=== PATIENT | male | born 1950 | race Caucasian/White ===

== ENCOUNTER 2018-03-01 10:17 | Inpatient (IN) | payer OTHER ==
[~2018-03-01] VITALS: Ht 167.6 cm; Wt 84.4 kg
--- NOTE | 2018-03-01 10:17 | NUR ---
PT BIBA BLS TO ER BED 04
[2018-03-01 10:23] VITALS: BP 105/72
[2018-03-01] MEDS ORDERED: NACL 0.9% 1,000 ML IV ONE (10:30)
--- NOTE | 2018-03-01 10:30 | NUR ---
PATIENT PRESENTS TO ED WITH 63 YO MALE BIB EMS FROM FIELD FOR LEFT ARM PAIN HAS LARGE ABSCESS ON LEFT ARM; DENIES N/V/D; SKIN IS PINK/WARM/DRY; PT RESPOND TO SOME QUESTIONS APPROPRIATELY; LUNGS CLEAR BL; HR EVEN AND REGULAR; PT DENIES ANY FEVER, CP, SOB, OR COUGH AT THIS TIME; PATIENT STATES PAIN OF 5/10 AT THIS TIME; VSS; PATIENT POSITIONED FOR COMFORT; HOB ELEVATED; BEDRAILS UP X2; BED DOWN. ER MD MADE AWARE OF PT STATUS.
[2018-03-01] MEDS ORDERED: LORazepam 2 MG/ML VIAL IVP ONE (10:35)
[2018-03-01] MEDS ORDERED: CLINDAMYCIN 900 MG in DEXTROSE 5% 100 ML IV ONE (10:35)
[2018-03-01] MEDS ORDERED: LORazepam 2 MG/ML VIAL ONE (10:39)
[2018-03-01 10:43] LABS: BASOPHILS # (AUTO) 0.1 K/uL (0.00-0.22); BASOPHILS % (AUTO) 0.5 % (0.0-2.0); EOSINOPHILS # (AUTO) 0.5 K/uL (0-0.4); EOSINOPHILS % (AUTO) 4.1 % (0.0-4.0); HEMATOCRIT 36.3 % (36-52); HEMOGLOBIN 12.2 g/dL (12.0-18.0); LYMPHOCYTES # (AUTO) 1.2 K/uL (2.0-11.5); LYMPHOCYTES % (AUTO) 10.1 % (20.5-51.1); MEAN CORPUSCULAR HEMOGLOBIN 30 pg (27-31); MEAN CORPUSCULAR HGB CONC 34 g/dL (33-37); MEAN CORPUSCULAR VOLUME 89.5 fL (80-94); MONOCYTES # (AUTO) 1.4 K/uL (0.8-1.0); MONOCYTES % (AUTO) 11.9 % (1.7-9.3); NEUTROPHILS # (AUTO) 8.5 K/uL (1.8-7.7); NEUTROPHILS % (AUTO) 73.4 % (42.2-75.2); PLATELET COUNT (AUTO) 272 K/uL (140-450); RED BLOOD CELL COUNT(AUTO) 4.06 MIL/uL (4.20-6.10); WHITE BLOOD COUNT (AUTO) 11.5 K/uL (4.8-10.8)
--- NOTE | 2018-03-01 10:44 | NUR ---
PT TAKEN OFF THE UNIT VIA GURNEY BY SELF PROPELLED DREDGE OPERATORSCOTTY TOVAR
--- NOTE | 2018-03-01 10:44 | NUR ---
PT TAKEN TO CT
[2018-03-01] MEDS ORDERED: diphenhydrAMINE 50 MG/ML VIAL IVP ONE (10:50)
[2018-03-01] MEDS ORDERED: HALOPERIDOL IM 5 MG/ML VIAL IM ONE (10:50)
--- NOTE | 2018-03-01 10:50 | NUR ---
PT BROUGHT BACK FROM CT, DR ARORA NOTIFIED BY SALES MARKETING DIRECTOR WHITNEY UNABLE TO DO CT SCAN D/T PT MOVING
[2018-03-01] MEDS ORDERED: HALOPERIDOL IM 5 MG/ML VIAL ONE (10:55)
[2018-03-01] MEDS ORDERED: diphenhydrAMINE 50 MG/ML VIAL ONE (10:55)
[2018-03-01 10:56] LABS: ANION GAP 13.1 (8-16); CARBON DIOXIDE 24.8 mmol/L (21-32); CREATININE 0.8 mg/dL (0.7-1.3); POTASSIUM 3.9 mmol/L (3.5-5.1)
[2018-03-01 11:02] LABS: ALBUMIN 3.6 g/dL (3.4-5.0); TOTAL BILIRUBIN 0.9 mg/dL (0.0-1.0)
--- NOTE | 2018-03-01 11:03 | NUR ---
PT TAKEN BACK TO CT BY ACUTE CARE ASSISTANTSCOTTY OLSON
[2018-03-01] MEDS ORDERED: CLINDAMYCIN 900 MG/6 ML VIAL IV ONE (11:10)
[2018-03-01 11:12] LABS: PROTHROMBIN TIME 11.2 secs (10.8-13.4)
[2018-03-01 11:14] LABS: SALICYLATE < 2.8 mg/dL (2.8-20.0)
[2018-03-01 11:15] LABS: ACETAMINOPHEN < 0.5 ug/ml (10-30)
[2018-03-01] MEDS ORDERED: MORPHINE SULFATE 2 MG/ML SYR IVP PRN (12:00)
[2018-03-01] MEDS ORDERED: HYDROcodone/APAP 5/325 MG 1 TAB TAB PO PRN (12:00)
[2018-03-01] MEDS ORDERED: ACETAMINOPHEN 325 MG TAB PO PRN (12:00)
[2018-03-01] MEDS ORDERED: ONDANSETRON 4 MG/2 ML VIAL IM/IVP PRN (12:00)
[2018-03-01] MEDS ORDERED: DOCUSATE SODIUM 100 MG GELCAP PO PRN (12:00)
[2018-03-01] MEDS ORDERED: ZOLPIDEM 5 MG TAB PO PRN (12:00)
[2018-03-01 12:04] LABS: APPEARANCE,URINE CLEAR (CLEAR); BILIRUBIN,URINE NEGATIVE (NEGATIVE); BLOOD, URINE NEGATIVE (NEGATIVE); COLOR,URINE YELLOW (YELLOW); LEUKOCYTE ESTERASE ,URINE NEGATIVE (NEGATIVE); NITRITE, URINE NEGATIVE (NEGATIVE); UGLUCOSE NEGATIVE (NEGATIVE)
[2018-03-01 12:16] LABS: BARBITURATE, URINE NEG. ng/ml (NEG <=200); BENZODIAZEPINE, URINE NEG. ng/mL (NEG <=200); CANNABINOID, URINE POS. ng/mL (NEG <=50); COCAINE, URINE NEG. ng/mL (NEG <=300); OPIATE, URINE POS. ng/mL (NEG <=2000); PHENCYCLIDINE SCREEN,URINE NEG. ng/mL (NEG <=25)
--- NOTE | 2018-03-01 12:25 | NUR ---
PT ARRIVED ON THE UNIT WITH 2 ER NURSES ON [facility]. PT IS SLEEPING. PER E/R NURSE, PT HAS BEEN GIVEN A LOT OF MEDS. NOTED PT IN JEANS AND SOCKS WITH HOSPITAL GOWN ON TOP. R FA 20G IV NS BOLUS, JUST FINISHED. PT HAS A LARGE ABCESS ON L UA. PT HAS MISSING TEETH. SKIN IS INTACT. PERSONAL BELONGINGS NEXT TO BED. V/S WITHIN NORMAL RANGE. NO SIGNS OF DISTRESS. WILL START ADMISSION PROCESS.
--- NOTE | 2018-03-01 12:38 | NUR ---
Patient will be admitted to care of DR DAS. Admited to MS. ROOM 105B. Belongings list completed. Report to TAYLOR CELIS
[2018-03-01 13:00] VITALS: BP 82/53
[2018-03-01] MEDS: NACL 0.9% 1,000 ML IV SCH ×3 (13:30→23:28)
--- NOTE | 2018-03-01 13:33 | NUR ---
PT STILL SLEEPING SOUNDLY. NO SIGNS OF DISTRESS. MRSA SCREENING DONE. ADMINISTERED FLUIDS. WILL CONTINUE TO MONITOR PT.
[2018-03-01 13:51] LABS: MAGNESIUM 1.8 mg/dL (1.8-2.4); PHOSPHORUS 3.4 mg/dL (2.5-4.9); THYROID STIMULATING HORMONE 1.51 uIU/mL (0.34-3.74)
[2018-03-01 16:37] VITALS: BP 104/64
[2018-03-01] MEDS: LACTOBACILLUS RHAMNOSUS GG 1 EACH CAP PO SCH (17:00)
--- NOTE | 2018-03-01 17:46 | NUR ---
PT SLEEPING. UNABLE TO AROUSE PT TO WAKE UP. WILL HOLD PROBIOTIC FOR ASP PRECAUTION.
--- NOTE | 2018-03-01 19:10 | NUR ---
ENDORSED PT TO THE HEATING ELEMENT BUILDER NURSE AT BEDSIDE FOR CONTINUITY OF CARE. PT IN STABLE CONDITION. SLEEPING.
--- NOTE | 2018-03-01 19:15 | NUR ---
RECEIVED REPORT FROM [facility] NURSE PEDRAZA AT BEDSIDE FOR CONTINUITY OF CARE. PT SLEEPING. IV NOTED RFA 20G NS 100ML/HR. PT HAS NO SOB NO S/S OF DISTRESS ON RA. PT HAS BEEN SLEEPING THE WHOLE DAY. WILL CONTINUE TO MONITOR.
[2018-03-01 20:00] VITALS: BP 104/63
[2018-03-01] MEDS: CLINDAMYCIN 600 MG in DEXTROSE 5% 50 ML IV SCH (20:06)
--- NOTE | 2018-03-01 22:39 | NUR ---
PT SLEEPING. NO SOB. NO S/S OF DISTRESS WILL CONTINUE TO MONITOR.
--- NOTE | 2018-03-02 00:53 | NUR ---
PT HAS BEEN IN RESTROOM FOR 20MIN IN THE TOILET. PT FALLING ASLEEP IN TOILET AND REFUSING TO GET UP. TRIED TO GET HIM OFF TOILET 4X. LET HIM KNOW SECURITY IS COMING. PT IS STILL ASLEEP IN TOILET. WILL CONTINUE TO MONITOR.
--- NOTE | 2018-03-02 02:00 | NUR ---
PT REQUESTED FOR RESTROOM. PT STAY IN BATHROOM OVER 20 MIN. THEN WAS ESCORTED TO GO TO BACK TO BED WILL CONTINUE TO MONITOR.
--- NOTE | 2018-03-02 04:33 | NUR ---
PT SLEEPING NO SOB NO S/S OF DISTRESS WILL CONTINUE TO MONITOR.
[2018-03-02] MEDS: CLINDAMYCIN 600 MG in DEXTROSE 5% 50 ML IV SCH (05:37)
[2018-03-02] MEDS ORDERED: VANCOMYCIN PER PHARMACY MC PRN (07:05)
--- NOTE | 2018-03-02 07:15 | NUR ---
ENDORSED REPORT TO [facility] NURSE PEDRAZA AT BEDSIDE FOR CONTINUITY OF CARE.
--- NOTE | 2018-03-02 07:16 | NUR ---
RECEIVED REPORT FROM THE CHOKE SETTER NURSE AT BEDSIDE FOR CONTINUITY OF CARE. PT IS SLEEPING. UPDATED HIS BOARD. PER CHOKE SETTER NURSE PT DID AMBULATE TO THE BATHROOM WITH ASSISTANCE. FELL ASLEEP IN THE BATHROOM AND NEEDED ASSISTANCE BACK TO THE BED X3. PT IS SWEATING, POSSIBLE WITHDRAWAL. SKIN, L UPPER ARM ABCESS. LAST BM UNKNOWN. IV ON R FA 22G NS AT 125 INFUSING. WILL CONTINUE TO ASSESS.
[2018-03-02 07:19] LABS: BASOPHILS % (AUTO) 0.3 % (0.0-2.0); EOSINOPHILS % (AUTO) 0.4 % (0.0-4.0); HEMATOCRIT 39.8 % (36-52); HEMOGLOBIN 13.4 g/dL (12.0-18.0); LYMPHOCYTES # (AUTO) 0.7 K/uL (2.0-11.5); LYMPHOCYTES % (AUTO) 6.7 % (20.5-51.1); MEAN CORPUSCULAR HEMOGLOBIN 30 pg (27-31); MEAN CORPUSCULAR HGB CONC 34 g/dL (33-37); MEAN CORPUSCULAR VOLUME 89.9 fL (80-94); MONOCYTES # (AUTO) 0.9 K/uL (0.8-1.0); MONOCYTES % (AUTO) 7.7 % (1.7-9.3); NEUTROPHILS # (AUTO) 9.5 K/uL (1.8-7.7); NEUTROPHILS % (AUTO) 84.9 % (42.2-75.2); PLATELET COUNT (AUTO) 283 K/uL (140-450); RED BLOOD CELL COUNT(AUTO) 4.42 MIL/uL (4.20-6.10); RED CELL DISTRIBUTION WIDTH 12.8 % (11.6-13.7); WHITE BLOOD COUNT (AUTO) 11.1 K/uL (4.8-10.8)
[2018-03-02 07:29] LABS: ANION GAP 16.6 (8-16); CARBON DIOXIDE 23.9 mmol/L (21-32); CREATININE 0.9 mg/dL (0.7-1.3); POTASSIUM 3.5 mmol/L (3.5-5.1)
[2018-03-02 07:40] LABS: MAGNESIUM 1.7 mg/dL (1.8-2.4)
--- NOTE | 2018-03-02 07:45 | NUR ---
V/S WITHIN NORMAL LIMITS. DRS WERE ROUNDING. PT IS NOW TELE, INSTEAD OF MS. ADMINISTERED TELE MONITOR. PER MD, PT WILL NEED A SURGICAL CONSULT FOR DRAINAGE. PT STILL SLEEPING. WILL CONTINUE TO MONITOR PT.
[2018-03-02 08:00] VITALS: BP 118/65
[2018-03-02] MEDS: LACTOBACILLUS RHAMNOSUS GG 1 EACH CAP PO SCH ×3 (08:00→12:00)
[2018-03-02] MEDS ORDERED: DEXTROSE 50% 50 ML SYR IVP PRN (08:20)
--- NOTE | 2018-03-02 08:49 | NUR ---
PATIENT HAS BEEN SCREENED AND CATEGORIZED LOW NUTRITION RISK. PATIENT WILL BE SEEN WITHIN 7 DAYS OF ADMISSION. 03/07/[address]
[2018-03-02] MEDS: VANCOMYCIN 1GM/DEXT 5% PREMIX 200 ML IV SCH ×2 (09:15→20:16)
[2018-03-02] MEDS: DEXT 5% / NACL 0.9% 1,000 ML IV SCH ×3 (09:16→21:40)
--- NOTE | 2018-03-02 09:20 | NUR ---
ADMINISTERED VANCO, NEW IV D5NS AND GAVE DEXTROSE FOR GLUCOSE LEVEL OF 57 THIS MORNING. HELD THE LACTOBACILLUS D/T PT NOT AWAKE AND NOT ALERT. ASP PREC. SCD'S ON. EMPTIED 650ML OF YELLOW URINE. PT SLEEPING SOUNDLY. WILL CONTINUE TO MONITOR PT.
--- NOTE | 2018-03-02 11:13 | NUR ---
PT SLEEPING SOUNDLY. NO SIGNS OF DISTRESS. RIVER I DONE. IVF INFUSING. WILL CONTINUE TO MONITOR PT.
[2018-03-02] MEDS ORDERED: BLOOD GLUCOSE MONITORING 1 DEV DEV FS SCH (11:30)
[2018-03-02 12:00] VITALS: BP 127/72
--- NOTE | 2018-03-02 12:00 | NUR ---
PT SLEEPING. HARD TO AROUSE. HELD PROBOTIC, ASP PRECAUTION. WILL CONTINUE TO MONITOR PT.
--- NOTE | 2018-03-02 12:20 | NUR ---
PT YELLING FOR ASSISTANCE. CHECKED ON PT. WANTED TO USE THE URINAL. ASSISTED PT. EMPTIED 350ML OF CLEAR YELLOW URINE. PT WENT BACK TO BED. UNAROUSABLE. WILL CONTINUE TO MONITOR PT.
--- NOTE | 2018-03-02 14:20 | NUR ---
PT SLEEPING. NO SIGNS OF DISTRESS. WILL CONTINUE TO MONITOR PT.
--- NOTE | 2018-03-02 15:10 | NUR ---
WOKE UP PT AND HAD PT SIGN THE CONSENT FORM FOR THE I&D AND FOR MEDICAL RELEASE. PT VERBALIZED UNDERSTANDING. PT WENT BACK TO SLEEP. WILL CONTINUE TO MONITOR PT.
[2018-03-02] MEDS ORDERED: LIDOCAINE 1% 500 MG/50 ML VIAL INJ SCH (15:50)
[2018-03-02] MEDS ORDERED: LIDOCAINE 1% ***ER ONLY *** 10 MG/ML VIAL INJ SCH (15:56)
[2018-03-02 16:00] VITALS: BP 109/67
[2018-03-02] MEDS ORDERED: DRY DRESSING TP PRN (16:45)
--- NOTE | 2018-03-02 16:50 | NUR ---
LATE ENTRY: [address] PINEDA WITH I&D. PT TOLERATED WELL. SEND WOUND CULTURE SAMPLE TO THE LAB. AFTER DRAINING, FLUSHED WITH BETADINE AND NS MULTIPLE TIMES. PACKED WITH PACKING STRIP. APPLIED GAUZE AND WRAPPED WITH CHARLEE WRAP. PER MD, WOUND CARE QD AND PRN. PT TOLERATED WELL. CHANGED GOWN AND BEDDING. PT BACK IN BED, RESTING COMFORTABLY.
--- NOTE | 2018-03-02 17:55 | NUR ---
TUAN FROM [facility]. REQUESTED CLINICALS AND LABS FOR PT FOR REVIEW. FAXED OVER 16PAGES. Addendum: 03/02/18 at 0007 by Adelina Bartholomew RN [phone] FAX
--- NOTE | 2018-03-02 18:16 | NUR ---
PT CAME ME NAME OF HIS SON TO NOTIFY. DANI AT [phone]. IT RANG AND THEN BUSY SIGNAL. ATTEMPTED 2X. SAME SITUATION. WILL NOTIFY PT AND LET HIM KNOW.
--- NOTE | 2018-03-02 19:15 | NUR ---
ENDORSED PT TO THE MARKETING TEAM LEAD NURSE AT BEDSIDE FOR CONTINUITY OF CARE. PT IS IN STABLE CONDITION.
--- NOTE | 2018-03-02 19:16 | NUR ---
RECEIVED REPORT FROM [facility] NURSE PEDRAZA AT BEDSIDE FOR CONTINUITY OF CARE. PT AAOX4. PT IS MORE ALERT AND ORIENTED TODAY. IV NOTED RFA 20G D5 0.9 NS 150ML/HR. NO SOB NO S/S OF DISTRESS ON RA. BANDAGE WOUND IN LEÓN FROM I&D OF ABSCESS. BED LOWERED CALL LIGHT WITHIN REACH WILL CONTINUE TO MONITOR.
[2018-03-02 20:00] VITALS: BP 101/65
--- NOTE | 2018-03-02 22:00 | NUR ---
PT SLEEPING NO SOB NO S/S OF DISTRESS. WILL CONTINUE TO MONITOR.
[2018-03-03] VITALS: BP 120/72
--- NOTE | 2018-03-03 02:33 | NUR ---
PT SLEEPING NO SOB NO S/S OF DISTRESS. WILL CONTINUE TO MONITOR.
[2018-03-03 04:00] VITALS: BP 141/61
[2018-03-03] MEDS: DEXT 5% / NACL 0.9% 1,000 ML IV SCH ×3 (04:37→18:42)
--- NOTE | 2018-03-03 07:16 | NUR ---
ENDORSED REPORT TO DAYSHIFT NURSE KARLA AT BEDSIDE FOR CONTINUITY OF CARE.
--- NOTE | 2018-03-03 07:17 | NUR ---
RECEIVED REPORT FROM RIB MATCHER AND FITTER NURSE JAMIA AT BEDSIDE FOR CONTINUITY OF CARE. PT IS AWAKE AND ORIENTED X3. INTRODUCED SELF AND UPDATED BOARD. PT DENIES PAIN. LUNG SOUNDS CLEAR ON AUSCULTATION. O2 SAT 99% ON RA. NO SOB. NO COUGH. S/P I&D L ARM ABSCESS. DRESSING DRY AND INTACT. IV TO R FA 20# INTACT. BS PRESENT. PT STATED "LBM WAS ABOUT A DAY AGO." NO SIGNS OF DISTRESS. PT SITTING UP IN BED EATING BREAKFAST. ORIENTED PT ON USE OF CALL LIGHT. BED IN LOW POSITION. WILL CONTINUE TO MONITOR.
[2018-03-03 08:00] VITALS: BP 125/74
[2018-03-03 08:06] LABS: BASOPHILS % (AUTO) 0.4 % (0.0-2.0); EOSINOPHILS # (AUTO) 0.4 K/uL (0-0.4); EOSINOPHILS % (AUTO) 6.1 % (0.0-4.0); HEMATOCRIT 38.9 % (36-52); MEAN CORPUSCULAR HEMOGLOBIN 30 pg (27-31); MEAN CORPUSCULAR HGB CONC 33 g/dL (33-37); MEAN CORPUSCULAR VOLUME 90.5 fL (80-94); MONOCYTES # (AUTO) 0.8 K/uL (0.8-1.0); MONOCYTES % (AUTO) 12.1 % (1.7-9.3); NEUTROPHILS # (AUTO) 4.2 K/uL (1.8-7.7); NEUTROPHILS % (AUTO) 65.4 % (42.2-75.2); PLATELET COUNT (AUTO) 282 K/uL (140-450); WHITE BLOOD COUNT (AUTO) 6.4 K/uL (4.8-10.8)
[2018-03-03 08:30] LABS: CARBON DIOXIDE 26.5 mmol/L (21-32); CREATININE 0.8 mg/dL (0.7-1.3); POTASSIUM 3.5 mmol/L (3.5-5.1)
[2018-03-03 08:33] LABS: MAGNESIUM 1.7 mg/dL (1.8-2.4); PHOSPHORUS 2.9 mg/dL (2.5-4.9)
[2018-03-03] MEDS ORDERED: MAG SULF 2000 MG/WATER PREMIX 100 ML IV ONE (08:50)
[2018-03-03] MEDS: VANCOMYCIN 1,250 MG in DEXTROSE 5% 250 ML IV SCH ×2 (09:43→20:38)
[2018-03-03] MEDS: LACTOBACILLUS RHAMNOSUS GG 1 EACH CAP PO SCH (09:43)
--- NOTE | 2018-03-03 10:00 | NUR ---
PT GOT UP AND OUT OF BED USING CANE. PT REPORTED GENERALIZED WEAKNESS BUT STEADY GAIT. WENT TO BATHROOM AND PT REPORTED HAVING A BM. ASSISTED TO BED. PT DENIES PAIN. CALL LIGHT WITHIN REACH. WILL CONTINUE TO MONITOR.
[2018-03-03] MEDS: BACITRACIN OINT 15000 UNITS/30 GM TUBE TP SCH (10:15)
--- NOTE | 2018-03-03 10:15 | NUR ---
WOUND EVALUATION NOTE: REASON FOR WOUND EVALUATION: S/P I&D LEFT UPPER ARM ABSCESS SKIN ASSESSMENT DONE ON THIS 53 Y/O MALE PATIENT FROM HOME TO [facility], WITH INITIAL DIAGNOSIS OF LEFT UPPER ARM ABSCESS. PAST MEDICAL HISTORY INCLUDE DRUG USAGE. ALL ABOVE INFORMATION WAS OBTAINED FROM THE ADMISSION H&P AND PT. PT IS AAX4. LABS ARE WBC 6.4, H/H 13.0/38.9 GLUCOSE 119, ALBUMIN 3.6. PATIENT IS AWAKE, ORIENTED TO PERSON, PLACE AND TIME. SKIN WARM TO TOUCH WNL, TOENAILS ARE SLIGHTLY THICKENED, NO EDEMA, BLE WITH HAIR GROWTH AND NORMAL PEDAL PULSES. ABLE TO MAKE HIS NEEDS KNOWS. ABLE TO TURN SELF WITHOUT ASSISTANCE. PLAN OF CARE AND PRESSURE PREVENTIVE MEASURES DISCUSSED WITH PT. AND PRIMARY RN. PT. VERBALIZES UNDERSTANDING. INTEGUMENTARY: -UPPER CHEST TATTOO WITH SKIN INTACT -S/P I&D LEFT UPPER ARM WOUND 1X1X2.5 CM WITH UNDERMINING AROUND THE CLOCK 2.2CM DEPTH, WOUND EDGE IS FLAT, SMALL AMOUNT OF SANGUINOUS DRAINAGE, NO ODOR, PERIWOUND ERYTHEMA WITH SURROUNDING REDNESS 4X4.5 CM. LEFT UPPER ARM WARM, RED WITH +1 EDEMA.PAIN 3/10 BEARABLE. RECOMMENDATIONS: -HOME HEALTH FOR WOUND CARE UPON DISCHARGE -IRRIGATE LEFT UPPER ARM WOUND WITH NS. PAT DRY, PACK WOUND WITH INCH IODOFORM AND APPLY BACITRACIN TO ABEBA-WOUND, COVER WITH DRY DRESSING AND WRAP WITH KERLIX ROLLS QD AND PRN IF SOILING. -TURN AND REPOSITION PATIENT Q2H -ASSESS AND MONITOR SKIN CONDITION DURING POSITION CHANGE -OFFLOAD BILATERAL HEELS BY PLACING PILLOWS UNDER CALVES AT ALL TIMES, UNLESS OTHERWISE CONTRAINDICATED-KEEP -KEEP SKIN CLEAN AND DRY AT ALL TIMES. RECOMMENDATIONS DISCUSSED WITH PRIMARY RN AND DR. BARBOUR WILL FOLLOW UP PATIENT Q 7-10 DAYS AND PRN. PLEASE CONTACT WOUND CARE NURSE FOR ANY QUESTIONS AND CHANGES IN WOUND CONDITION.
--- NOTE | 2018-03-03 11:09 | NUR ---
Patient will have Home health for wound care, [facility]. [phone] Spoke to [facility] Emily and will forward the auth to home health. Clinical review faxed to [facility].
--- NOTE | 2018-03-03 11:17 | NUR ---
[id number] RECEIVED A CALL FROM MARJAN BRANCH AT [facility] [phone] AND THIS NUMBER IS ALSO THE CALL NUMBER FOR AFTER HOURS AND WEEK-ENDS. FAX [phone]. PROVIDED MARJAN WITH CLINICAL UPDATE AND ALSO DISCHARGE PLAN IS FOR PT TO GO HOME WITH HOME HEALTH SERVICE FOR WOUND CARE WOUND S/P I&D REQUIRES PACKING AND IS IN A LOCATION THAT IS DIFFICULT FOR PT TO ACCESS ([place]). MARJAN GAVE [employer]URITY SYSTEMS ENGINEER CONTRACTED WITH [facility]: JASE NIEVES, [facility]. INFORMED HER THAT PT MOST LIKELY WILL NOT GO HOME TILL TOMORROW PENDING FINAL CULTURE REPORT.
[2018-03-03] MEDS: MAGNESIUM SULFATE 1GM in DEXTROSE 5% 100 ML PREMIX IV SCH ×4 (11:49→15:16)
--- NOTE | 2018-03-03 11:59 | NUR ---
Faxed order of home health for wound care to Trevor at [phone] and informed trevor patient will be d/c tomorrow.
[2018-03-03] MEDS: DRY DRESSING TP SCH (12:11)
--- NOTE | 2018-03-03 14:50 | NUR ---
PT'S SON DANI CALLED. SPOKE WITH HIM ABOUT POSSIBLE PLAN FOR D/C TOMORROW AND THAT PT WILL NEED HOME HEALTH FOR WOUND CARE. VERBALIZED UNDERSTANDING. PT VERIFIED THAT HIS HOME PHONE IS [phone] WHERE HE CAN REACH HIS SON AND WHERE HE LIVES.
[2018-03-03 15:55] VITALS: BP 123/82
--- NOTE | 2018-03-03 16:37 | NUR ---
Art Museum Aide Note: I call [facility] and Spoke to Mack from admission, about patient possibly discharging tomorrow 03/04/18 and to making sure they can follow up with patient after his discharge. Per Mack he has all information and will follow up with patient after his discharge. I also provided alternative number to Patient's sister Dayana Ho at due to Patient's home number not working at this time. Mack thanked me for the information and I ended the call.
--- NOTE | 2018-03-03 17:55 | NUR ---
PT AWAKE AND EATING DINNER. NO SIGNS OF DISTRESS. PT DENIES PAIN. PT AWARE OF PLAN FOR HOME HEALTH FOR WOUND CARE. VERBALIZED UNDERSTANDING. CALL LIGHT WITHIN REACH. WILL CONTINUE TO MONITOR.
--- NOTE | 2018-03-03 19:25 | NUR ---
ENDORSED PT TO BENCH MECHANIC NURSE TORRI AT BEDSIDE FOR CONTINUITY OF CARE. PT IN STABLE CONDITION.
--- NOTE | 2018-03-03 19:26 | NUR ---
RECD. RESTING IN BED, AWAKE, A/OX3. RESPIRATION EVEN AND UNLABORED. D5NS AT 150 ML/HR INFUSING, RIGHT FOREARM G20. WOUND IN THE LEFT UPPER EXTREMITY COVERED WITH DRESSING DRY AND INTACT. PLAN OF CARE FOR THE SHIFT DISCUSSED. VERBALIZED UNDERSTANDING. PAIN IN THE SITE 09/14, STATED TOLERABLE.
--- NOTE | 2018-03-03 20:00 | NUR ---
Patient's Plan of Care was discussed and reviewed with ARCHITECTURAL PRACTICE MANAGER: TORRI MEHTA
--- NOTE | 2018-03-03 20:38 | NUR ---
VANCOMYCIN IVPB INFUSED BY TAYLOR MORLEY. PATIENT TOLERATED WELL.
--- NOTE | 2018-03-03 23:30 | NUR ---
STILL AWAKE, WATCHING TV.
[2018-03-04] VITALS: BP 113/64
--- NOTE | 2018-03-04 | NUR ---
SLEEPING COMFORTABLY IN BED.
[2018-03-04] MEDS: DEXT 5% / NACL 0.9% 1,000 ML IV SCH ×2 (00:20→07:00)
--- NOTE | 2018-03-04 06:35 | NUR ---
PATIENT HAS BEEN SCREENED AND CATEGORIZED HIGH NUTRITION RISK. PATIENT WILL BE SEEN WITHIN 1-2 DAYS OF ADMISSION. 03/04/18-03/05/18 TINO CLARKE MS, RDN
[2018-03-04 06:36] LABS: BASOPHILS % (AUTO) 0.6 % (0.0-2.0); EOSINOPHILS # (AUTO) 0.5 K/uL (0-0.4); EOSINOPHILS % (AUTO) 8.5 % (0.0-4.0); HEMATOCRIT 35.4 % (36-52); HEMOGLOBIN 12.1 g/dL (12.0-18.0); LYMPHOCYTES # (AUTO) 1.1 K/uL (2.0-11.5); LYMPHOCYTES % (AUTO) 18.4 % (20.5-51.1); MEAN CORPUSCULAR HEMOGLOBIN 31 pg (27-31); MEAN CORPUSCULAR HGB CONC 34 g/dL (33-37); MEAN CORPUSCULAR VOLUME 89.4 fL (80-94); MONOCYTES # (AUTO) 0.6 K/uL (0.8-1.0); NEUTROPHILS # (AUTO) 3.8 K/uL (1.8-7.7); NEUTROPHILS % (AUTO) 62.5 % (42.2-75.2); PLATELET COUNT (AUTO) 261 K/uL (140-450); RED BLOOD CELL COUNT(AUTO) 3.95 MIL/uL (4.20-6.10); RED CELL DISTRIBUTION WIDTH 12.9 % (11.6-13.7); WHITE BLOOD COUNT (AUTO) 6.1 K/uL (4.8-10.8)
--- NOTE | 2018-03-04 06:45 | NUR ---
ABLE TO SLEEP WELL. NO COMPLAINT OF PAIN DURING SHIFT. WILL ENDORSE TO AM NURSE FOR CONTINUITY OF CARE.
[2018-03-04 07:05] LABS: ANION GAP 11.3 (8-16); CARBON DIOXIDE 26.3 mmol/L (21-32); CREATININE 0.7 mg/dL (0.7-1.3); POTASSIUM 3.6 mmol/L (3.5-5.1)
[2018-03-04 07:10] LABS: MAGNESIUM 1.8 mg/dL (1.8-2.4); PHOSPHORUS 3.3 mg/dL (2.5-4.9)
--- NOTE | 2018-03-04 07:15 | NUR ---
ENDORSED TO AM NURSE FOR CONTINUITY OF CARE.
--- NOTE | 2018-03-04 07:16 | NUR ---
RECEIVED BEDSIDE REPORT FROM KINDERGARTEN AIDE NURSE. PATIENT IS SLEEPING, EASILY AROUSABLE. ALERT AND ORIENTEDX4. PATIENT STUTTERS WHEN HE COMMUNICATES. HE AMBULATES TO THE RESTROOM BUT WHEN HE IS TIRED HE USES THE URINAL. SKIN HAS L ARM S/P I&D. BANDAGE HAS SEROSANGUINEOUS SCANT DRAINAGE. WILL CHANGE DRESSING. PATIENT COMPLAINS OF NO PAIN AT THIS TIME. IV ON R FA 20G INFUSING D5/NS AT 150ML/HR. IV IS CLEAN, DRY AND INTACT. BED IN LOW POSITION. CALL LIGHT WITHIN REACH. WILL CONTINUE TO MONITOR THE PATIENT.
[2018-03-04 08:00] VITALS: BP 132/78
[2018-03-04] MEDS: LACTOBACILLUS RHAMNOSUS GG 1 EACH CAP PO SCH (09:52)
[2018-03-04] MEDS: VANCOMYCIN 1,250 MG in DEXTROSE 5% 250 ML IV SCH (09:52)
[2018-03-04] MEDS: BACITRACIN OINT 15000 UNITS/30 GM TUBE TP SCH (09:58)
--- NOTE | 2018-03-04 10:13 | NUR ---
ADMINISTERED MEDS. PATIENT TOLERATED WELL. IV IS CLEAN, DRY AND INTACT. CLEANSED THE WOUND WITH NS. PAT DRY. PACKED THE WOUND. PLACED 4X4 GAUZED AND WRAPPED. PATIENT TOLERATED WELL. GAVE NORCO BEFORE WOUND CARE FOR PAIN. BED IN LOW POSITION. CALL LIGHT WITHIN REACH. WILL CONTINUE TO MONITOR THE PATIENT.
[2018-03-04] MEDS ORDERED: CLIN300C2 PO (11:43)
[2018-03-04] MEDS ORDERED: SULF1TAB12 PO (11:43)
[2018-03-04] MEDS ORDERED: LACT10CA PO (11:54)
--- NOTE | 2018-03-04 12:00 | NUR ---
EXPLAINED TO THE PATIENT THAT WE ARE AWAITING DISCHARGE ORDERS. PATIENT SAID OK. NO SIGNS OF DISTRESS. WILL CONTINUE TO MONITOR THE PATIENT
[2018-03-04] MEDS: DRY DRESSING TP SCH (12:09)
--- NOTE | 2018-03-04 13:20 | NUR ---
EDUCATED PATIENT ON DISEASE PROCESS, SURGERY, WOUND CARE, ABN S/SX, EXPLAINED HOW HOME HEALTH WILL COME AND HELP HIM, SISTER AND SON IS AWARE, EDUCATED ON THE IMPORTANCE TO F/U WITH PCP, EDUCATED ON MEDS, PRESCRIPTION GIVEN. REMOVED ID BANDS. REMOVED IV, IV TIP IS INTACT. WHEELCHAIRED PATIENT OUT. PATIENT ASKED NURSE PAPER MACHINE SUPERVISOR FOR 3 BUS PASSES. PATIENT AMBULATED ACROSS THE STREET TO THE BUS WITH CANE. PATIENT LEFT IN STABLE CONDITION
== END 2018-03-04 13:20 | disposition home health service (06) | DRG 603 ==
LOC: MED 10:17 → EDBD 11:56 → MTU 11:56
PROVIDERS: ADMIT General Practice; ATTEND General Practice
PROC: 0H9CXZZ Drainage of Left Upper Arm Skin, External Approach (ICD-10-PCS; principal; 2018-03-01)
DX: L03.114 Cellulitis of left upper limb (principal); E87.1 Hypo-osmolality and hyponatremia; F19.10 Other psychoactive substance abuse, uncomplicated; E66.9 Obesity, unspecified; Z68.30 Body mass index [BMI] 30.0-30.9, adult; E83.42 Hypomagnesemia
CPT/HCPCS: 36415; 71045; 73200; 80048; 80053; 80202; 80305; 81003; 82948; 83036; 83605; 83690; 83735; 83880; 84100; 84134; 84443; 84484; 85025; 85610; 85730; 87040; 87070; 87075; 87081; 87186; 87205; 93005; 96361; 96365; 96372; 96375; 99285; G0480; G0482; J1200; J1630; J2001; J2060; J3370; J3490; J7030; J7042; J7060; Q0092